=== PATIENT | male | born 1950 ===

== ENCOUNTER 2018-11-19 17:36 | Emergency (ER) | payer MEDICARE, BC ==
[2018-11-19] MEDS ORDERED: LISI-362 PO (18:14)
[2018-11-19] MEDS ORDERED: [UNRECOGNIZED DRUG - OTHER] (18:14)
--- NOTE | 2018-11-19 18:28 | ER Report ---
History and Physical Time Seen By MD: 18:00 Hx. of Stated Complaint: COUGH, SENT BY URGENT CARE HPI/ROS CHIEF COMPLAINT: Hypoxia HISTORY OF PRESENT ILLNESS: 68-year-old male without one antitrypsin deficiency and gets weekly infusions, lives in [place], is here visiting daughter for 2 days, presents with chief complaint of hypoxia. He has had 2 weeks of cough productive of generally clear sputum. He is also had rhinitis. He has not had fevers or chills. Cough has been slightly worse since arriving in [place] one day ago. He presented to urgent care due to the dyspnea which has been gradually increasing and was referred here due to hypoxia despite 2 L of nasal cannula. He is not normally on oxygen. He has not had chest pain or pressure. He has not had swelling in legs. He has mild nausea, no abdominal pain. He has noticed increased urinary frequency. He was told he had a UTI at urgent care though review of his record shows that he has positive leukocytes on the urine dip there are no other positive findings. He has no leg swelling. No hx of dvt/pe REVIEW OF SYSTEMS: Constitutional: No fever, no chills. Eyes: No discharge. ENT: mild sore throat Cardiovascular: No chest pain, no palpitations. Respiratory: above Gastrointestinal: No abdominal pain, no vomiting. Genitourinary: frequency as above Musculoskeletal: No back pain. Skin: No rashes. Neurological: No headache. Remainder of the 14 system rev: Yes Allergies: Coded Allergies: Penicillins (Verified Allergy, Unknown, 11/19/18) Home Meds Reported Medications Lisinopril (LISINOPRIL) 10 Mg Tablet, 10 MG PO QDAY, TAB 11/19/18 [Aerolast] No Conflict Check 11/19/18 Reviewed Nurses Notes: Yes Hx Smoking: No Constitutional Vital Sign - Last 24 Hours 11/19/18 11/19/18 11/19/18 11/19/18 17:36 17:43 17:59 18:00 Temp 97.5 Pulse ??? 99 Resp 20 B/P (MAP) 178/97 (124) 178/97 156/106 (123) Pulse Ox 87 O2 Delivery Nasal Cannula 11/19/18 11/19/18 11/19/18 11/19/18 18:06 18:30 19:00 19:06 Pulse 97 98 B/P (MAP) 163/105 (124) 149/85 (106) Pulse Ox 87 88 11/19/18 19:19 Pulse Ox 84 O2 Delivery Room Air Physical Exam General Appearance: The patient is alert, has no immediate need for airway protection and no signs of toxicity. Eyes: Pupils equal and round no pallor or injection. ENT, Mouth: Mucous membranes are moist. Respiratory: There are no retractions, lungs are clear to auscultation with exception of occ ronchi at bases. Cardiovascular: Regular rate and rhythm. No m/r/g Gastrointestinal: Abdomen is soft and non tender, no masses, bowel sounds normal. Neurological: alert, oriented, nix Skin: Warm and dry, no rashes. Musculoskeletal: Neck is supple non tender. No LAD Extremities are nontender, nonswollen and have full range of motion. DIFFERENTIAL DIAGNOSIS: After history and physical exam differential diagnosis was considered for shortness of breath including but not limited to pulmonary infectious process, COPD, asthma, pulmonary embolus and congestive heart failure. Medical Decision Making Data Points Laboratory Hematology Test 11/19/18 18:30 Urine Color Yellow Urine Clarity Clear Urine pH 6.0 pH (4.8-9.5) Urine Specific [place] 1.021 Urine Protein Negative mg/dL (NEGATIVE) Urine Glucose (UA) Negative mg/dL (NEGATIVE) Urine Ketones 20 mg/dL (NEGATIVE) Urine Blood Negative (NEGATIVE) Urine Nitrite Negative (NEGATIVE) Urine Bilirubin Negative (NEGATIVE) Urine Urobilinogen 4.0 mg/dL (0.2-1.9) Urine Leukocyte Esterase Trace (NEGATIVE) Urine RBC 2 /HPF (0-2/HPF) Urine WBC 9 /HPF (0-5/HPF) Urine Squamous Epithelial Cells None /LPF (</=FEW) Urine Bacteria Negative /HPF (NONE-FEW) Urine Mucus None /HPF (NONE-FEW) Chemistry Test 11/19/18 18:30 Urine Color Yellow Urine Clarity Clear Urine pH 6.0 pH (4.8-9.5) Urine Specific [place] 1.021 Urine Protein Negative mg/dL (NEGATIVE) Urine Glucose (UA) Negative mg/dL (NEGATIVE) Urine Ketones 20 mg/dL (NEGATIVE) Urine Blood Negative (NEGATIVE) Urine Nitrite Negative (NEGATIVE) Urine Bilirubin Negative (NEGATIVE) Urine Urobilinogen 4.0 mg/dL (0.2-1.9) Urine Leukocyte Esterase Trace (NEGATIVE) Urine RBC 2 /HPF (0-2/HPF) Urine WBC 9 /HPF (0-5/HPF) Urine Squamous Epithelial Cells None /LPF (</=FEW) Urine Bacteria Negative /HPF (NONE-FEW) Urine Mucus None /HPF (NONE-FEW) Urinalysis Test 11/19/18 18:30 Urine Color Yellow Urine Clarity Clear Urine pH 6.0 pH (4.8-9.5) Urine Specific [place] 1.021 Urine Protein Negative mg/dL (NEGATIVE) Urine Glucose (UA) Negative mg/dL (NEGATIVE) Urine Ketones 20 mg/dL (NEGATIVE) Urine Blood Negative (NEGATIVE) Urine Nitrite Negative (NEGATIVE) Urine Bilirubin Negative (NEGATIVE) Urine Urobilinogen 4.0 mg/dL (0.2-1.9) Urine Leukocyte Esterase Trace (NEGATIVE) Urine RBC 2 /HPF (0-2/HPF) Urine WBC 9 /HPF (0-5/HPF) Urine Squamous Epithelial Cells None /LPF (</=FEW) Urine Bacteria Negative /HPF (NONE-FEW) Urine Mucus None /HPF (NONE-FEW) ED Course/Re-evaluation ED Course 68-year-old male presents with hypoxia from urgent care. He has URI symptoms and has recently travel to altitude. He is hemodynamically stable in the emergency department and sats at 90% on 2 L. I reviewed his x-ray from [facility] which does not show significant consolidation. Of note, he did have a urine dip which showed positive leuk esterase. Here he has leukocytosis consistent with UTI. We will initiate Bactrim as he is allergic to penicillins. I discussed the risk and benefits of further evaluation to rule out low likelihood of PE, ACS, CHF given his chief complaint. Using shared decision making, patient elected to withhold from further testing. We did perform bedside ultrasound which showed no pericardial effusion, no significant wall motion abnormality, normal ejection fraction, and no right heart strain. I set patient up for home oxygen as he travels back to [place] he is comfortable on discharge. Decision to Disposition Date: Nov 19, 2018 Decision to Disposition Time: 19:59 Depart Departure Latest Vital Signs Vital Signs Date Time Temp Pulse Resp B/P (MAP) Pulse Ox O2 Delivery O2 Flow Rate FiO2 11/19/18 19:19 84 Room Air 11/19/18 19:06 98 11/19/18 19:00 149/85 (106) 11/19/18 17:59 97.5 20 Impression: Primary Impression: Lower respiratory infection Additional Impressions: Hypoxia Urinary tract infection Condition: Improved Disposition: HOME OR SELF-CARE New Scripts Sulfamethoxazole/Trimet 800-160 Mg Tab (BACTRIM DS TABLET) 1 Each Tablet 1 TAB PO Q12H for 7 Days, #10 TAB Prov: BHARGAV VARGAS MD 11/19/18 Patient Instructions: Hypoxia (ED), Upper Respiratory Infection (ED), Urinary Tract Infection in Men (DC) Additional Instructions: As we discussed, use home O2 while at altitude as needed. Please return immediately for more difficulty breathing, chest pain, leg swelling, or any concerns. The Bactrim may interact with let your lisinopril causing you to retain potassium. This can be dangerous so if you have any decrease in urination, swelling, feel fatigue, or other concerns please go to an emergency department for further evaluation. Problem Qualifiers Additional Impressions: Urinary tract infection Urinary tract infection type: acute cystitis Hematuria presence: without hematuria Qualified Codes: N30.00 - Acute cystitis without hematuria BHARGAV VARGAS MD Nov 19, 2018 18:28
[2018-11-19 19:00] VITALS: BP 149/85
[2018-11-19] MEDS ORDERED: TRIMETH/SULFA DS 160-800MG TAB PO ONE (19:15)
[2018-11-19] MEDS ORDERED: SULF-198 PO (20:06)
== END 2018-11-19 20:15 | disposition home or self-care (01) ==
LOC: ER 18:11
DX: J22 Unspecified acute lower respiratory infection (principal); R09.02 Hypoxemia; N30.00 Acute cystitis without hematuria
CPT/HCPCS: 81001; 99283; A9270

== ENCOUNTER → 2018-11-19 | Outpatient (REF) | payer MEDICARE, BC ==
[~2018-11-19] MED LIST: LISI-362 PO; SULF-198 PO; [UNRECOGNIZED DRUG - OTHER]
[2018-11-19 15:36] LABS: PLATELET COUNT, AUTOMATED 310 K/uL (150-450)
== END ==
PROVIDERS: ATTEND Family Medicine
DX: R06.00 Dyspnea, unspecified (principal); R09.02 Hypoxemia
CPT/HCPCS: 82040; 82247; 82310; 82374; 82435; 82565; 82947; 83880; 84075; 84132; 84155; 84295; 84450; 84460; 84484; 84520; 85025; 85379